=== PATIENT | female | born 1975 | race Caucasian/White ===

== ENCOUNTER → 2020-11-22 09:55 | Outpatient (CLI) | payer BC, SELFPAY ==
--- NOTE | ~2020-11-22 | XR_ITS ---
EXAMINATION: XR hand RT min 3V INDICATION: Right hand pain TECHNIQUE: Three views of the right hand are obtained. COMPARISON: 10/30/2014 FINDINGS: Bone alignment is normal. There is no fracture. There is moderate to severe osteoarthritis at the first carpometacarpal joint. The soft tissues are unremarkable. 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 IMPRESSION: 1. No acute osseous abnormality. 2. Moderate to severe osteoarthritis of the first carpometacarpal joint. Reviewed, dictated and finalized at location B.
--- NOTE | ~2020-11-22 | XR_ITS ---
EXAMINATION: XR chest 2V DATE: 11/22/2020 11:14 INDICATION: Chest pain TECHNIQUE: PA and lateral views of the chest are obtained. COMPARISON: 12/24/2008 FINDINGS: The lungs are free of acute opacities. There is no pleural effusion or pneumothorax. The ca rdiomediastinal silhouette is normal. There is mild thoracic spondylosis. IMPRESSION: 1. No acute cardiopulmonary abnormality. Reviewed, dictated and finalized at location B.
--- NOTE | ~2020-11-22 | XR_ITS ---
EXAMINATION: XR sternum min 2V INDICATION: Chest pain TECHNIQUE: Two views of the sternum are obtained. COMPARISON: None available FINDINGS: No displaced fracture is identified. No acute abnormality of the partially imaged thorax is identified. IMPRESSION: 1. No definite displaced fracture identified. Reviewed, dictated and finalized at location B.
== END ==
PROVIDERS: PCP Physician Assistant; Visit Provider Physician Assistant
DX: M47.814 Spondylosis without myelopathy or radiculopathy, thoracic region (principal); M18.11 Unilateral primary osteoarthritis of first carpometacarpal joint, right hand
CPT/HCPCS: 71046; 71120; 73130

== ENCOUNTER 2021-02-02 12:27 | Outpatient (CLI) | payer OTHER, BC, SELFPAY ==
--- NOTE | ~2021-02-02 | MR_ITS ---
EXAMINATION: MR brain/brain stem wo/w con DATE: 02/02/2021 13:31 INDICATION: Headache, unspecified. TECHNIQUE: Magnetic resonance imaging (MRI) of the brain and brainstem was performed without and with 18 mL MultiHance intravenous contrast. Sequences included sagittal and axial T1-weighted FSE, axial diffusion-weighted FS EPI, axial T2*-weighted GRE, axial T2-weighted FLAIR Propeller, and axial T2-we ighted Propeller. Postcontrast sequences included axial and coronal T1-weighted FSE. Apparent diffusi on coefficient (ADC) maps were created. COMPARISON: None. FINDINGS: There is no intracranial hemorrhage, acute infarction, or abnormal intracranial mass lesion . The ventricles are normal in size. The paranasal sinuses are clear. The orbits are normal. The mast oid air cells are normal. IMPRESSION: 1. Normal brain. Reviewed, dictated and finalized at location A. 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 Normal brain.
[2021-02-02 13:03] LABS: Estimated Glomerular Filt Rate > 60
== END 2021-02-02 12:28 | disposition home or self-care (01) ==
PROVIDERS: PCP Physician Assistant; Visit Provider Physician Assistant
DX: R41.82 Altered mental status, unspecified (principal); R51.9 Headache, unspecified
CPT/HCPCS: 70553; A9577

== ENCOUNTER 2021-02-06 08:33 | Outpatient (CLI) | payer OTHER, BC, SELFPAY ==
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
== END 2021-02-06 08:34 | disposition home or self-care (01) ==
PROVIDERS: PCP Physician Assistant; Visit Provider Physician Assistant
DX: R41.82 Altered mental status, unspecified (principal); R51.9 Headache, unspecified
CPT/HCPCS: 95816

== ENCOUNTER 2021-02-08 13:35 | Outpatient (CLI) | payer OTHER, BC, SELFPAY ==
--- NOTE | 2021-02-08 | ECHO_ITS ---
Patient Info Name: Kathryn Maldonado Age: 45 years : 1975 Gender: Female Ht: 60 in Wt: 200 lbs BSA: 2.01 m2 HR: 81 bpm BP: 120 / 76 mmHg Heart Rhythm: Sinus Rhythm Technical Quality: Fair, Good Exam Date: 02/08/2021 2:27 PM Exam Location: [facility] Patient Status: Outpatient Admit Date: 02/08/2021 Staff Ordering Physician: KemarKingsley PA-C Full Stack Net Developer: Daniella Goode RDCS Attending Provider: KemarKingsley PA-C Exam Type: CA echo doppler color flow Study Info Indications - CO[place]AS[place] Complete two-dimensional, color flow and Doppler transthoracic echocardiogram is performed. Summary 1. Complete two-dimensional, color flow and Doppler transthoracic echocardiogram is performed. 2. Left ventricular chamber dimension is normal. 3. Left ventricular systolic function is normal, estimated at 60-65%. 4. There is no increased left ventricular wall thickness. 5. The left ventricular diastolic function is normal. 6. There is no aortic valve stenosis. 7. There is trace mitral valve regurgitation. 8. There is trace tricuspid valve regurgitation. 9. Mild pulmonary hypertension, estimated pulmonary arterial systolic pressure is 37 mmHg. Left Ventricle Left ventricular chamber dimension is normal. Left ventricular systolic function is normal, estimated at 60-65%. There is no increased left ventricular wall thickness. The left ventricular diastolic function is normal. Right Ventricle Right ventricular chamber dimension is normal. Right ventricular systolic function is normal. Left Atria Left atrial chamber dimension is normal. Right Atria Right atrial chamber dimension is normal. Aortic Valve The aortic valve is not well visualized. There is no aortic valve stenosis. There is no aortic valve regurgitation. Pulmonic Valve The pulmonic valve is not well visualized. Mitral Valve The mitral valve has normal leaflets. There is trace mitral valve regurgitation. Tricuspid Valve The tricuspid valve leaflets are normal. There is trace tricuspid valve regurgitation. Mild pulmonary hypertension, estimated pulmonary arterial systolic pressure is 37 mmHg. Pericardium/Pleural The pericardium appears normal. There is no pericardial effusion. Inferior Vena Cava Normal inferior vena cava with >50% collapse upon inspiration consistent with normal right atrial pressure, 5 mmHg. Aorta The aortic root size at the sinus of Valsalva is normal. Left Ventricular Outflow Tract Name Value Normal LVOT Doppler LVOT Peak Gradient 9 mmHg LVOT Mean Gradient 5 mmHg LVOT VTI 28 cm LVOT VTI/AV VTI Ratio 0.8 Pulmonic Valve Name Value Normal PV Doppler PV Peak Gradient 4 mmHg Mitral Valve Name Value
== END 2021-02-08 13:36 | disposition home or self-care (01) ==
PROVIDERS: PCP Physician Assistant; Visit Provider Physician Assistant
DX: R55 Syncope and collapse (principal); I27.20 Pulmonary hypertension, unspecified
CPT/HCPCS: 93306

== ENCOUNTER 2024-01-23 14:57 | Outpatient (CLI) | payer BC, SELFPAY ==
--- NOTE | ~2024-01-23 | XR_ITS ---
Right Shoulder Technique: AP and scapular Y views were obtained. Clinical History: Pain Findings: No fracture or dislocation is seen. Osseous alignment is anatomic. The glenohumeral and acr omioclavicular joint spaces are preserved. Soft tissues are unremarkable. Impression: Unremarkable right shoulder radiographs. Reviewed, dictated and finalized at [facility]. 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
== END 2024-01-23 14:58 | disposition home or self-care (01) ==
PROVIDERS: PCP Physician Assistant; Visit Provider Physician Assistant
DX: M25.511 Pain in right shoulder (principal)
CPT/HCPCS: 73030